=== PATIENT | female | born 1960 | race Hispanic/Latino ===

== ENCOUNTER → 2017-04-08 | Outpatient (CLI) | payer MEDICARE | END | disposition home or self-care (01) | LOC: SLP 20:30 | PROVIDERS: ATTEND Internal Medicine Cardiovascular Disease | DX: G47.33 Obstructive sleep apnea (adult) (pediatric) (principal) | CPT/HCPCS: 95810 ==

== ENCOUNTER → 2017-05-26 | Outpatient (CLI) | payer MEDICARE | END | disposition home or self-care (01) | LOC: SLP 20:33 | PROVIDERS: ATTEND Internal Medicine Cardiovascular Disease | DX: G47.33 Obstructive sleep apnea (adult) (pediatric) (principal) | CPT/HCPCS: 95811 ==

== ENCOUNTER → 2018-03-30 | Outpatient (CLI) | payer OTHER | END | disposition home or self-care (01) | LOC: OIH 12:57 | PROVIDERS: ATTEND Internal Medicine Cardiovascular Disease | DX: Z13.6 Encounter for screening for cardiovascular disorders (principal); I31.3 Pericardial effusion (noninflammatory); I51.7 Cardiomegaly | CPT/HCPCS: 75571 ==

== ENCOUNTER 2019-09-17 05:34 | Day surgery (SDC) | payer MEDICARE ==
[2019-09-17] VITALS (11 sets, daily range): BP systolic 99–126; BP diastolic 45–63
[~2019-09-17] VITALS: Ht 162.6 cm; Wt 125.0 kg
[~2019-09-17 05:34] MED LIST: ASPI-556 PO; CARV6.25 PO; FURO20TA4 PO; PRAV20TA4 PO; SACU1TAB PO; SODIUM CHLORIDE 0.9% 1000ML 1,000 ML IV SCH; SPIR25TA6 PO; [UNRECOGNIZED DRUG - CODE] PO
[2019-09-17 06:32] LABS: CREATININE 1.1 mg/dL (0.5-1.5); POTASSIUM 3.9 mmol/L (3.5-5.1)
[2019-09-17 06:37] LABS: INR 0.92 (0.85-1.15); PARTIAL THROMBOPLASTIN TIME 27.1 SEC (26.3-35.5)
[2019-09-17 06:40] LABS: BASOPHILS % (AUTO) 0.4 % (0.0-5.0); EOSINOPHILS % (AUTO) 2.8 % (0.0-8.0); LYMPHOCYTES % (AUTO) 28.9 % (21.0-51.0); MEAN CORPUSCULAR HEMOGLOBIN 31.7 pg (27.0-33.0); MEAN CORPUSCULAR HGB CONC 32.4 g/dL (32.0-36.0); MEAN CORPUSCULAR VOLUME 97.6 fL (79-99); MONOCYTES % (AUTO) 6.1 % (3.0-13.0); NEUTROPHILS % (AUTO) 61.4 % (40.0-77.0); PLATELET COUNT (AUTO) 177 K/uL (130-400); RED BLOOD CELL COUNT(AUTO) 3.79 MIL/uL (4.00-5.50); RED CELL DISTRIBUTION WIDTH 13.1 % (11.0-15.5); WHITE BLOOD COUNT (AUTO) 9.3 K/uL (4.8-10.8)
--- NOTE | 2019-09-17 07:06 | NUR ---
PROCEDURE PT HERE FOR PROCEDURE. DENIES ANY PAIN, SOB AT THIS TIME.
[2019-09-17] MEDS ORDERED: CEFAZOLIN SODIUM 1 GM VIAL ONE (08:52)
[2019-09-17] MEDS ORDERED: MIDAZOLAM HCL 1 MG/ML 2ML VIAL ONE ×3 (08:52→09:45)
[2019-09-17] MEDS ORDERED: MEPERIDINE-PF 25 MG/ML SYG ONE ×3 (08:52→09:45)
[2019-09-17] MEDS ORDERED: BUPIVACAINE/PF 0.25% 30ML VIAL IJ ONE (08:52)
[2019-09-17] MEDS ORDERED: LIDOCAINE HCL 1% MDV 50ML VIAL ONE (08:52)
--- NOTE | 2019-09-17 09:00 | NUR ---
PROCEDURE PT TAKEN TO PROCEDURE VIA BED BY POTLINE MONITOR STAFF GILLIAN WALLACE
[2019-09-17] MEDS ORDERED: OCTYL 2-CYANOACRYLATE 1 EACH TP ONE (10:15)
[2019-09-17] MEDS ORDERED: ACETAMINOPHEN-CODEINE 300/30MG TAB PO PRN ×2 (11:00)
[2019-09-17] MEDS ORDERED: ONDANSETRON HCL 4 MG/2 ML VIAL IV PRN (11:00)
--- NOTE | 2019-09-17 14:22 | NUR ---
DISCHARGE ORAL AND WRITTEN DISCHARGE INSTRUCTIONS GIVEN TO PTS FATHER AND PT ALONG WITH PRESCRIPTION. NO OTHER QUESTIONS AT THIS TIME. DENIES ANY PAIN.
--- NOTE | 2019-09-17 14:33 | NUR ---
REPORT REPORT GIVEN TO GILLIAN MCKEON
[2019-09-17] MEDS ORDERED: CEFAZOLIN SODIUM 1 GM VIAL IVP SCH (16:00)
--- NOTE | 2019-09-17 16:05 | NUR ---
dc pt dc home via wc,no distress noted. pt denied any pain or discomforts. dressing to left upper chest dry and intact, no bleeding or hematoma to site. pt accompanied by her father
== END 2019-09-17 16:05 | disposition home or self-care (01) ==
LOC: CLH 05:34
PROVIDERS: ATTEND Internal Medicine Cardiovascular Disease
DX: Z45.02 Encounter for adjustment and management of automatic implantable cardiac defibrillator (principal); I42.0 Dilated cardiomyopathy; Z79.82 Long term (current) use of aspirin; Z79.899 Other long term (current) drug therapy; Z79.01 Long term (current) use of anticoagulants
CPT/HCPCS: 33264; 36415; 80048; 85025; 85610; 85730; 93005; A4215; A4216; A4221; A4222; A4223 ×3; A4606; A4663; C1882; J0690 ×2; J2175 ×3; J2250 ×3; J3490 ×2; J7030; 99156; 99157

== ENCOUNTER 2019-11-29 12:54 | Inpatient (IN) | payer MEDICARE ==
[~2019-11-29] VITALS: Ht 165.1 cm; Wt 128.7 kg
[2019-11-29] VITALS (12 sets, daily range): BP systolic 74–114; BP diastolic 31–75
[~2019-11-29 12:54] MED LIST changes: -SODIUM CHLORIDE 0.9% 1000ML 1,000 ML IV SCH
[2019-11-29] MEDS ORDERED: DILTIAZEM HCL 125 MG/25 ML VIAL IV ONE (13:09)
[2019-11-29] MEDS ORDERED: DILTIAZEM HCL 5 MG/ML 10 ML VIAL IV ONE (13:09)
[2019-11-29 13:13] LABS: BASOPHILS % (AUTO) 0.4 % (0.0-5.0); EOSINOPHILS % (AUTO) 1.2 % (0.0-8.0); HEMATOCRIT 39.7 % (36-48); LYMPHOCYTES % (AUTO) 16.3 % (21.0-51.0); MEAN CORPUSCULAR HEMOGLOBIN 31.6 pg (27.0-33.0); MEAN CORPUSCULAR VOLUME 95.9 fL (79-99); MONOCYTES % (AUTO) 5.9 % (3.0-13.0); NEUTROPHILS % (AUTO) 75.7 % (40.0-77.0); PLATELET COUNT (AUTO) 222 K/uL (130-400); RED BLOOD CELL COUNT(AUTO) 4.14 MIL/uL (4.00-5.50); RED CELL DISTRIBUTION WIDTH 13.2 % (11.0-15.5); WHITE BLOOD COUNT (AUTO) 13.8 K/uL (4.8-10.8)
[2019-11-29 13:24] LABS: CREATININE 1.1 mg/dL (0.5-1.5); POTASSIUM 4.3 mmol/L (3.5-5.1)
[2019-11-29 13:27] LABS: INR 0.89 (0.85-1.15); PARTIAL THROMBOPLASTIN TIME 26.8 SEC (26.3-35.5); PROTHROMBIN TIME 9.7 SEC (9.6-11.6)
[2019-11-29 13:29] LABS: ALBUMIN 3.8 g/dL (3.5-5.0); BILIRUBIN,TOTAL 0.8 mg/dL (0.2-1.0); TOTAL PROTEIN, SERUM 7.3 g/dL (6.0-8.3)
[2019-11-29] MEDS ORDERED: ASPIRIN 325 MG TABLET ONE (13:45)
[2019-11-29] MEDS ORDERED: FUROSEMIDE 10 MG/ML 2ML VIAL ONE (13:55)
[2019-11-29] MEDS ORDERED: KETOROLAC TROMETHAMINE 15MG/ML ONE ×2 (14:29→14:36)
[2019-11-29] MEDS ORDERED: ONDANSETRON HCL 4 MG/2 ML VIAL IV PRN (14:30)
[2019-11-29] MEDS ORDERED: ACETAMINOPHEN 325 MG TAB PO PRN ×2 (14:30)
[2019-11-29] MEDS ORDERED: LACTULOSE 20 GM/30 ML UDCUP PO PRN (14:30)
[2019-11-29] MEDS ORDERED: MORPHINE SULFATE 2 MG/ML 1ML SYG IV PRN (14:30)
[2019-11-29] MEDS ORDERED: ONDANSETRON HCL 4 MG/2 ML VIAL ONE (14:44)
[2019-11-29] MEDS: FUROSEMIDE 10 MG/ML 2ML VIAL IV SCH (14:45)
[2019-11-29] MEDS ORDERED: DILTIAZEM 125MG+100 ML NS 125 ML IV SCH (14:45)
[2019-11-29 15:08] LABS: CHOLESTEROL 180 mg/dL (<200); HDL CHOLESTEROL 83 mg/dL (35-85); LDL DIRECT 131 mg/dL (0-99); TRIGLYCERIDES 167 mg/dL (30-200)
[2019-11-29 15:09] LABS: HEMOGLOBIN A1C 6.2 % (4.0-6.0)
[2019-11-29] MEDS ORDERED: FUROSEMIDE 10 MG/ML 4ML VIAL IV SCH (17:15)
[2019-11-29] MEDS ORDERED: FUROSEMIDE 10 MG/ML 4ML VIAL ONE (18:04)
[2019-11-29] MEDS ORDERED: METOPROLOL TARTRATE 1 MG/ML 5ML VIAL IV PRN (18:15)
[2019-11-29] MEDS ORDERED: METOPROLOL TARTRATE 1 MG/ML 5ML VIAL IV SCH (20:30)
[2019-11-29] MEDS: FAMOTIDINE 20MG TAB 20 MG TAB PO SCH (21:45)
[2019-11-29 23:31] LABS: APPEARANCE,URINE Clear (CLEAR); BILIRUBIN,URINE Negative (NEGATIVE); COLOR,URINE Yellow (YELLOW); GLUCOSE, URINE (UA) Negative (NEGATIVE); KETONES,URINE Negative (NEGATIVE); LEUKOCYTE ESTERASE ,URINE Moderate (NEGATIVE); NITRATE,URINE Negative (NEGATIVE); OCCULT BLOOD,URINE Negative (NEGATIVE); PROTEIN,URINE Negative (NEGATIVE); UROBILINOGEN,URINE 0.2 mg/dL (0.2-1.0)
[2019-11-29 23:53] LABS: BACTERIA,URINE Moderate /HPF (None Seen); RBC,URINE 0-1 /HPF (0-1)
[2019-11-29 23:54] LABS: HYALINE CASTS, URINE 0-1 /LPF (0-1 /LPF); SQUAMOUS EPITHELIAL CELL,UR 0-2 /HPF (0-2)
[2019-11-30] VITALS (28 sets, daily range): BP systolic 87–142; BP diastolic 46–75
[2019-11-30] MEDS: FUROSEMIDE 10 MG/ML 2ML VIAL IV SCH ×2 (03:51→14:09)
[2019-11-30 04:07] LABS: BASOPHILS % (AUTO) 0.4 % (0.0-5.0); HEMATOCRIT 35.9 % (36-48); LYMPHOCYTES % (AUTO) 16.7 % (21.0-51.0); MEAN CORPUSCULAR HEMOGLOBIN 31.4 pg (27.0-33.0); MEAN CORPUSCULAR HGB CONC 32.3 g/dL (32.0-36.0); NEUTROPHILS % (AUTO) 77.6 % (40.0-77.0); PLATELET COUNT (AUTO) 172 K/uL (130-400); RED CELL DISTRIBUTION WIDTH 13.2 % (11.0-15.5); WHITE BLOOD COUNT (AUTO) 14.7 K/uL (4.8-10.8)
[2019-11-30 04:11] LABS: CREATININE 1.2 mg/dL (0.5-1.5)
[2019-11-30] MEDS: APIXABAN 5 MG TABLET PO SCH ×2 (09:45→22:08)
[2019-11-30] MEDS: FAMOTIDINE 20MG TAB 20 MG TAB PO SCH ×2 (09:45→22:09)
[2019-11-30] MEDS: ASPIRIN 81MG TAB.CHEW PO SCH (09:45)
[2019-11-30] MEDS: METOPROLOL TARTRATE 25 MG TAB PO SCH ×2 (09:46→22:09)
--- NOTE | 2019-11-30 11:30 | NUR ---
BEDSIDE REPORT GIVEN TO GILLIAN IVEY
--- NOTE | 2019-11-30 16:03 | NUR ---
PT TRANSFER TO PT TRANSFERRED TO [facility] VIA WHEELCHAIR ESCORTED BY NURSE BE WHO RECEIVED BEDSIDE REPORT. PT REMAINED ON 2L VIA NC WITH OXYGEN SATURATIONS AT 98-100%. HR 90S-110 WITHOUT EXERTION. USE OF BSC. VOIDED X8 WITH 1 BM SINCE I REPORTED TO DUTY LOCATION. CRITICAL DRIPS WERE DISCONTINUED AT 10AM. PT APPEARS TO BE TOLERATION PO MEDS WELL. NO COMPLAINTS VOICED
--- NOTE | 2019-11-30 16:10 | NUR ---
TRANSFER FROM ICU RECEIVED PT VIA WHEELCHAIR, PT IS AMBULATORY TO SHOWER AND BACK TO BED, GAIT STEADY AND STRONG WITH STAND BY ASSIST, PT DENIES PAIN, DIZZINESS OR LIGHTHEADEDNESS BUT DOES C/O PALPITATIONS, PT PLACED ON TELE PACK, TELE MONITOR DISPLAYS AFIB WITH A RATE OF 120-140 BEATS PER MINUTE, CARDIZEM IV INITIATED AT 5MG PER HOUR. PT RESTING COMFORTABLY. CALL LIGHT WITHIN REACH.
--- NOTE | 2019-11-30 16:40 | NUR ---
TI PLAN PATIENT BEING MOVED TO FOURTH FLOOR. CM WILL TRY TO DO IA ONCE ON FLOOR. Addendum: 11/30/19 at 1644 by MARTHA SCHOFIELD RN CM Amended: Links added.
[2019-11-30] MEDS ORDERED: PHARMACY COMMUNICATION MISC SCH (19:30)
[2019-12-01 03:47] VITALS: BP 120/61
[2019-12-01] MEDS: FUROSEMIDE 10 MG/ML 2ML VIAL IV SCH ×2 (05:23→17:00)
--- NOTE | 2019-12-01 05:28 | NUR ---
SHIFT UPDATE PATIENT REMAINED ON 2L VIA NC SPO2 AT 98-100%. CONT. ON CARDIAC DRIP HR 100S-120 WITHOUT EXERTION USE OF BSC. VOIDED X6 WITH 1 BM DURING SHIFT. PT PO MEDS WELL. NO C/O PAIN OR DISCOMFORT, CALL DEVICE WITHIN REACH WILL CONT. TO MONITOR.
[2019-12-01 08:45] VITALS: BP 104/65
[2019-12-01] MEDS: METOPROLOL TARTRATE 25 MG TAB PO SCH ×2 (09:06→21:49)
[2019-12-01] MEDS: ASPIRIN 81MG TAB.CHEW PO SCH (09:07)
[2019-12-01] MEDS: APIXABAN 5 MG TABLET PO SCH ×2 (09:07→21:49)
[2019-12-01] MEDS: FAMOTIDINE 20MG TAB 20 MG TAB PO SCH ×2 (09:07→21:49)
[2019-12-01 11:47] VITALS: BP 120/63
[2019-12-01] MEDS ORDERED: FLUT16H NASAL (12:48)
--- NOTE | 2019-12-01 13:06 | NUR ---
ABIDA NOTE/IA UNABLE TO MEET WITH PATIENT, NEXT OF KIN CALLED, CATHERINE VALDESREZ. PER FATHER, PATIENT LIVES WITH MOTHER AND SISTER, IS INDEPENDENT WITH ADLS, NO USE OF DME OR PROVIDER SERVICES, FEELS SAFE FOR PATIENT TO RETURN HOME ONCE DISCHARGED. Addendum: 12/02/19 at 1122 by ROSANNA LANDIN RN CM Amended: Links added.
[2019-12-01 15:28] VITALS: BP 110/65
[2019-12-01] MEDS: FLUTICASONE PROPIONATE 50MCG/SPRAY 16 GM BOTTLE EN SCH (15:28)
[2019-12-01] MEDS ORDERED: HYDROXYZINE HCL 25 MG TABLET PO SCH (19:30)
[2019-12-01 19:46] VITALS: BP 96/68
[2019-12-01 23:48] VITALS: BP 126/90
[2019-12-02 04:16] VITALS: BP 117/53
[2019-12-02] MEDS ORDERED: ACETAMINOPHEN ELIXIR 650 MG/20.3 ML UDCUP ONE (04:54)
[2019-12-02] MEDS: FUROSEMIDE 10 MG/ML 2ML VIAL IV SCH ×2 (05:21→17:22)
[2019-12-02 08:00] VITALS: BP 121/65
[2019-12-02] MEDS: FAMOTIDINE 20MG TAB 20 MG TAB PO SCH ×2 (08:43→22:35)
[2019-12-02] MEDS: METOPROLOL TARTRATE 25 MG TAB PO SCH ×2 (08:43→22:35)
[2019-12-02] MEDS: ASPIRIN 81MG TAB.CHEW PO SCH (08:44)
[2019-12-02] MEDS: FLUTICASONE PROPIONATE 50MCG/SPRAY 16 GM BOTTLE EN SCH (08:44)
[2019-12-02] MEDS ORDERED: APIXABAN 2.5 MG TABLET PO ONE (10:03)
[2019-12-02] MEDS: APIXABAN 5 MG TABLET PO SCH ×2 (10:13→22:35)
[2019-12-02] MEDS: CEFTRIAXONE SODIUM 1 GM IVP SCH (10:13)
[2019-12-02] MEDS ORDERED: MIDAZOLAM HCL 1 MG/ML 2ML VIAL IVP SCH (11:15)
[2019-12-02] MEDS ORDERED: FENTANYL CITRATE PF 50 MCG/1 ML 2ML VIAL IVP SCH (11:15)
[2019-12-02] MEDS ORDERED: LIDOCAINE HCL 2% VISCOUS 15 ML UDCUP PO SCH (11:15)
--- NOTE | 2019-12-02 11:15 | NUR ---
SOREN/CARDIOVERSION PT IN BED, NO SIGNS OF DISTRESS, O2 SAT 95%, SOREN/CARDIOVERSION DONE PER DR Cristian BYRNES, PT TOLERATED WELL. PT RECEIVED VERSED 3 MG IV AND FENTANYL 100 MG IV, O2 PER NC. PT PACED WITH UNDERLYING RHYTHM SINUS. DENIES DISCOMFORT, TELEMETRY MONITORING
[2019-12-02 12:00] VITALS: BP 105/70
--- NOTE | 2019-12-02 14:00 | NUR ---
PM ASSESSMENT PT IN BED, AWAKENS WITH VERBAL STIMULATION. DENIES CHEST PAIN OR DISCOMFORT, TELEMETRY MONITORING.
[2019-12-02 16:00] VITALS: BP 124/70
--- NOTE | 2019-12-02 17:00 | NUR ---
ASSESSMENT PT AWAKE AND ALERT, DENIES CHEST PAIN OR DISCOMFORT, NO SOB OR LABORED RESPIRATIONS. STATES FEELING BETTER. DENIES LESS DISCOMFORT WHEN VOIDING. TELEMETRY MONITORING
[2019-12-02 20:14] VITALS: BP 142/73
[2019-12-03 00:24] VITALS: BP 121/63
[2019-12-03 04:19] VITALS: BP 122/62
[2019-12-03] MEDS: FUROSEMIDE 10 MG/ML 2ML VIAL IV SCH (05:31)
[2019-12-03] MEDS: CEFTRIAXONE SODIUM 1 GM IVP SCH (09:49)
[2019-12-03] MEDS: FAMOTIDINE 20MG TAB 20 MG TAB PO SCH (09:49)
[2019-12-03] MEDS: METOPROLOL TARTRATE 25 MG TAB PO SCH (09:50)
[2019-12-03] MEDS: ASPIRIN 81MG TAB.CHEW PO SCH (09:50)
[2019-12-03] MEDS: APIXABAN 5 MG TABLET PO SCH (09:50)
[2019-12-03] MEDS: FLUTICASONE PROPIONATE 50MCG/SPRAY 16 GM BOTTLE EN SCH (09:51)
[2019-12-03] MEDS ORDERED: APIX5TAB PO (09:55)
[2019-12-03] MEDS ORDERED: METO25 PO (09:55)
[2019-12-03 10:08] VITALS: BP 125/65
[2019-12-03 11:54] VITALS: BP 126/60
--- NOTE | 2019-12-03 13:00 | NUR ---
[id number] patient signed IM Letter, I faxed IM letter to [id number] and placed in chart under consent tab.
[2019-12-03] MEDS ORDERED: CEPH-578 PO (15:04)
[2019-12-03 17:00] VITALS: BP 139/68
== END 2019-12-03 19:00 | disposition home or self-care (01) | DRG 308 ==
LOC: EDH 12:54 → OBSVTOIN 14:03 → EDHIP 14:03 → DAHIP 19:35 → 4DH 11-30 16:18
PROVIDERS: ADMIT Hospitalist; ATTEND Hospitalist
PROC: 5A2204Z Restoration of Cardiac Rhythm, Single (ICD-10-PCS; principal; 2019-12-02)
PROC: B24BZZ4 Ultrasonography of Heart with Aorta, Transesophageal (ICD-10-PCS; 2019-12-02)
DX: I48.91 Unspecified atrial fibrillation (principal); I50.23 Acute on chronic systolic (congestive) heart failure; N39.0 Urinary tract infection, site not specified; I11.0 Hypertensive heart disease with heart failure; E66.9 Obesity, unspecified; I42.8 Other cardiomyopathies; Z95.810 Presence of automatic (implantable) cardiac defibrillator; I08.1 Rheumatic disorders of both mitral and tricuspid valves; Z83.3 Family history of diabetes mellitus; Z82.49 Family history of ischemic heart disease and other diseases of the circulatory system
CPT/HCPCS: 36415; 71045; 80048; 80053; 80061; 81001; 82550; 83036; 83735; 83880; 84484; 85025; 85610; 85730; 87088; 92960; 93005; 93306; 93313; 93356; 99291; G0378; J0696; J1885; J1940; J2250; J2405; J3010; J3490

== ENCOUNTER 2020-03-02 18:54 | Emergency (ER) | payer MEDICARE, OTHER ==
[~2020-03-02 18:54] MED LIST changes: +APIX5TAB PO; -CARV6.25 PO; +CEPH-578 PO; +FLUT16H NASAL; +METO25 PO
[2020-03-02 19:32] LABS: BASOPHILS % (AUTO) 0.4 % (0.0-5.0); EOSINOPHILS % (AUTO) 2.1 % (0.0-8.0); HEMATOCRIT 39.3 % (36-48); LYMPHOCYTES % (AUTO) 19.5 % (21.0-51.0); MEAN CORPUSCULAR HEMOGLOBIN 31.4 pg (27.0-33.0); MEAN CORPUSCULAR HGB CONC 32.3 g/dL (32.0-36.0); MONOCYTES % (AUTO) 5.6 % (3.0-13.0); PLATELET COUNT (AUTO) 192 K/uL (130-400); RED BLOOD CELL COUNT(AUTO) 4.05 MIL/uL (4.00-5.50); RED CELL DISTRIBUTION WIDTH 12.8 % (11.0-15.5); WHITE BLOOD COUNT (AUTO) 13.7 K/uL (4.8-10.8)
[2020-03-02 19:32] LABS: APPEARANCE,URINE Clear (CLEAR); BILIRUBIN,URINE Negative (NEGATIVE); COLOR,URINE Yellow (YELLOW); GLUCOSE, URINE (UA) Negative (NEGATIVE); KETONES,URINE Negative (NEGATIVE); LEUKOCYTE ESTERASE ,URINE Trace (NEGATIVE); NITRATE,URINE Negative (NEGATIVE); OCCULT BLOOD,URINE Negative (NEGATIVE); PROTEIN,URINE Negative (NEGATIVE); UROBILINOGEN,URINE 0.2 mg/dL (0.2-1.0)
[2020-03-02 19:40] LABS: CREATININE 1.1 mg/dL (0.5-1.5); POTASSIUM 3.9 mmol/L (3.5-5.1)
[2020-03-02 19:44] LABS: ALBUMIN 4.2 g/dL (3.5-5.0); BILIRUBIN,TOTAL 0.5 mg/dL (0.2-1.0); TOTAL PROTEIN, SERUM 7.9 g/dL (6.0-8.3)
[2020-03-02 19:51] LABS: BACTERIA,URINE Few /HPF (None Seen); RBC,URINE None Seen /HPF (0-1); WBC,URINE 0-1 /HPF (0-1)
[2020-03-02 19:52] LABS: SQUAMOUS EPITHELIAL CELL,UR 0-2 /HPF (0-2)
[2020-03-02] MEDS ORDERED: CYCLOBENZAPRINE HCL 10 MG TABLET ONE (21:32)
[2020-03-02] MEDS ORDERED: METHYLPREDNISOLONE SOD SUCC 125MG/2ML VIAL ONE (21:32)
== END 2020-03-02 21:46 | disposition home or self-care (01) ==
LOC: EDH 18:54
DX: S33.5XXA Sprain of ligaments of lumbar spine, initial encounter (principal); M79.18 Myalgia, other site; I10 Essential (primary) hypertension; Z90.49 Acquired absence of other specified parts of digestive tract; Z98.890 Other specified postprocedural states; X58.XXXA Exposure to other specified factors, initial encounter; Y93.89 Activity, other specified; Y92.89 Other specified places as the place of occurrence of the external cause; Y99.8 Other external cause status
CPT/HCPCS: 36415; 72100; 80053; 81001; 83690; 84484; 85025; 93005; 96374; 99285; J2930

== ENCOUNTER → 2020-11-13 | Outpatient (CLI) | payer OTHER ==
[~2020-11-13] MED LIST changes: +[UNRECOGNIZED DRUG - CODE] PO; -[UNRECOGNIZED DRUG - CODE] PO
== END | disposition home or self-care (01) ==
LOC: DTH 14:04
PROVIDERS: ATTEND Surgery
DX: E66.01 Morbid (severe) obesity due to excess calories (principal); M19.91 Primary osteoarthritis, unspecified site; E78.00 Pure hypercholesterolemia, unspecified
CPT/HCPCS: 97802

== ENCOUNTER → 2021-01-09 | Outpatient (CLI) | payer OTHER ==
[~2021-01-09] VITALS: Ht 10.2 cm; Wt 126.8 kg
== END | disposition home or self-care (01) ==
LOC: DTH 10:54
PROVIDERS: ATTEND Surgery
DX: I10 Essential (primary) hypertension (principal); E78.00 Pure hypercholesterolemia, unspecified; E66.01 Morbid (severe) obesity due to excess calories
CPT/HCPCS: 97802; 97803

== ENCOUNTER 2021-03-30 13:58 | Emergency (ER) | payer MEDICARE, OTHER ==
[~2021-03-30] VITALS: Ht 162.6 cm; Wt 120.7 kg
[2021-03-30] MEDS ORDERED: PSEU120T62 PO (15:20)
[2021-03-30] MEDS ORDERED: GUAI-996 PO (15:20)
[2021-03-30] MEDS ORDERED: ACET-3194 PO (15:20)
[2021-03-30] MEDS ORDERED: AZIT250T9 PO (15:20)
[2021-03-30 15:54] VITALS: BP 128/72
== END 2021-03-30 15:50 | disposition home or self-care (01) ==
LOC: EDH 13:58
DX: U07.1 COVID-19 (principal); E78.00 Pure hypercholesterolemia, unspecified; Z98.890 Other specified postprocedural states; Z79.82 Long term (current) use of aspirin; Z79.899 Other long term (current) drug therapy
CPT/HCPCS: 87635; 87804 ×2; 99283; C9803

== ENCOUNTER 2021-06-25 18:15 | Inpatient (IN) | payer MEDICARE, OTHER ==
[~2021-06-25] VITALS: Ht 162.6 cm; Wt 118.0 kg
[~2021-06-25 18:15] MED LIST changes: +ACET-3194 PO; +AZIT250T9 PO; +GUAI-996 PO; +PSEU120T62 PO
[2021-06-25] MEDS ORDERED: FAMOTIDINE 20MG VIAL IV ONE (19:30)
[2021-06-25] MEDS ORDERED: PANTOPRAZOLE 40 MG/VIAL IVP ONE (19:30)
[2021-06-25 19:36] LABS: BASOPHILS % (AUTO) 0.5 % (0.0-5.0); HEMATOCRIT 41.5 % (36-48); LYMPHOCYTES % (AUTO) 25.3 % (21.0-51.0); MEAN CORPUSCULAR HEMOGLOBIN 30.7 pg (27.0-33.0); MEAN CORPUSCULAR HGB CONC 31.6 g/dL (32.0-36.0); MEAN CORPUSCULAR VOLUME 97.2 fL (79-99); MONOCYTES % (AUTO) 7.2 % (3.0-13.0); NEUTROPHILS % (AUTO) 65.5 % (40.0-77.0); PLATELET COUNT (AUTO) 190 K/uL (130-400); RED BLOOD CELL COUNT(AUTO) 4.27 MIL/uL (4.00-5.50); RED CELL DISTRIBUTION WIDTH 14.1 % (11.0-15.5); WHITE BLOOD COUNT (AUTO) 11.8 K/uL (4.8-10.8)
[2021-06-25 19:46] LABS: CREATININE 1.1 mg/dL (0.5-1.5); POTASSIUM 4.4 mmol/L (3.5-5.1)
[2021-06-25 19:50] LABS: ALBUMIN 3.8 g/dL (3.5-5.0); BILIRUBIN,TOTAL 0.5 mg/dL (0.2-1.0); TOTAL PROTEIN, SERUM 6.9 g/dL (6.0-8.3)
[2021-06-25] MEDS ORDERED: DILTIAZEM 50MG VIAL IV ONE (19:50)
[2021-06-25 19:53] LABS: B-TYPE NATRIURETIC PEPTIDE 1110 pg/mL (0-100)
[2021-06-25] MEDS ORDERED: DILTIAZEM 25MG INJ IVP ONE (20:00)
[2021-06-25] MEDS ORDERED: 0.9% NACL 500ML IV.SOLN 500 ML IV ONE (20:00)
[2021-06-25] MEDS ORDERED: ONDANSETRON 4MG INJ IVP ONE (20:30)
[2021-06-25] MEDS ORDERED: METOCLOPRAMIDE 10 MG/2 ML VIAL IVP ONE (20:30)
[2021-06-25] MEDS ORDERED: FUROSEMIDE 20MG VIAL IV ONE (21:00)
[2021-06-25] MEDS ORDERED: DILTIAZEM 125 MG/25 ML INJ 125 MG in 0.9%NACL 100ML 100 ML IV PRN (21:00)
[2021-06-25] MEDS ORDERED: DILTIAZEM 125 MG/25 ML INJ 125 MG in 0.9%NACL 100ML 100 ML IV SCH (21:00)
[2021-06-25] MEDS ORDERED: METOCLOPRAMIDE 10 MG/2 ML VIAL ONE (21:47)
[2021-06-25] MEDS ORDERED: ONDANSETRON 4MG INJ ONE (21:47)
[2021-06-25] MEDS ORDERED: ASPIRIN 81MG CHEW TAB PO ONE (22:00)
[2021-06-25] MEDS ORDERED: ONDANSETRON 4MG INJ IV PRN (22:00)
[2021-06-26] MEDS ORDERED: ASPIRIN 81MG CHEW TAB ONE (00:03)
[2021-06-26 05:41] LABS: BASOPHILS % (AUTO) 0.5 % (0.0-5.0); HEMATOCRIT 38.1 % (36-48); LYMPHOCYTES % (AUTO) 29.7 % (21.0-51.0); MEAN CORPUSCULAR HEMOGLOBIN 31.4 pg (27.0-33.0); MEAN CORPUSCULAR HGB CONC 31.5 g/dL (32.0-36.0); MEAN CORPUSCULAR VOLUME 99.7 fL (79-99); MONOCYTES % (AUTO) 6.8 % (3.0-13.0); NEUTROPHILS % (AUTO) 61.7 % (40.0-77.0); PLATELET COUNT (AUTO) 153 K/uL (130-400); RED BLOOD CELL COUNT(AUTO) 3.82 MIL/uL (4.00-5.50); RED CELL DISTRIBUTION WIDTH 14.2 % (11.0-15.5); WHITE BLOOD COUNT (AUTO) 9.3 K/uL (4.8-10.8)
[2021-06-26 06:00] LABS: MAGNESIUM 2.2 mg/dL (1.80-2.40); PHOSPHORUS 4.4 mg/dL (2.5-4.9); POTASSIUM 4.2 mmol/L (3.5-5.1)
[2021-06-26] MEDS ORDERED: ENOXAPARIN SODIUM 40 MG/0.4 ML SYRINGE SQ SCH (09:00)
[2021-06-26] MEDS ORDERED: ASPIRIN 81MG CHEW TAB PO SCH (09:00)
[2021-06-26] MEDS: FUROSEMIDE 40MG VIAL IVP SCH ×2 (09:25→20:46)
[2021-06-26] MEDS: FAMOTIDINE 20MG TAB PO SCH (09:25)
[2021-06-26] MEDS ORDERED: METO200T49 PO (09:34)
[2021-06-26] MEDS ORDERED: EMPA10TA PO (09:34)
[2021-06-26] MEDS ORDERED: AEC81 PO (09:34)
[2021-06-26] MEDS ORDERED: SPIR25TA6 PO (09:34)
[2021-06-26] MEDS ORDERED: SACU1TAB4 PO (09:34)
[2021-06-26] MEDS ORDERED: AMIODARONE 150MG VIAL 150 MG in DEXTROSE 5%-WATER 100 ML IV SCH (15:30)
[2021-06-26] MEDS ORDERED: FENTANYL CITRATE PF 50 MCG/1 ML 2ML VIAL IVP ONE (15:30)
[2021-06-26] MEDS ORDERED: MIDAZOLAM HCL 1 MG/ML 2ML VIAL IVP ONE (15:30)
[2021-06-26 15:53] LABS: INR 0.99 (0.85-1.15); PROTHROMBIN TIME 10.8 SEC (9.6-11.6)
[2021-06-26] MEDS ORDERED: HEPARIN 5,000 UNIT VIAL ONE (15:53)
[2021-06-26] MEDS ORDERED: AMIODARONE 900MG VIAL 360 MG in DEXTROSE 5%-WATER 200 ML IV SCH (16:00)
[2021-06-26] MEDS: HEPARIN 25,000 UNITS/250ML D5W 250 ML IV SCH (16:11)
[2021-06-26] MEDS ORDERED: HEPARIN 5,000 UNIT VIAL IV ONE (17:00)
[2021-06-26 17:45] VITALS: BP 106/63
[2021-06-26 20:00] VITALS: BP 142/72
[2021-06-26] MEDS: SIMVASTATIN 20 MG TABLET PO SCH (20:46)
[2021-06-26] MEDS ORDERED: SACUBITRIL/VALSARTAN 1 EACH TABLET PO SCH (21:00)
[2021-06-26 21:47] LABS: INR 1.05 (0.85-1.15); PROTHROMBIN TIME 11.4 SEC (9.6-11.6)
[2021-06-26] MEDS ORDERED: MIDAZOLAM HCL 1 MG/ML 2ML VIAL IVP PRN (22:00)
[2021-06-26] MEDS ORDERED: AMIODARONE 900MG VIAL 540 MG in DEXTROSE 5%-WATER 300 ML IV SCH (22:00)
[2021-06-26] MEDS ORDERED: FENTANYL CITRATE PF 50 MCG/1 ML 2ML VIAL IVP PRN (22:00)
[2021-06-26 22:22] LABS: PARTIAL THROMBOPLASTIN TIME 105.1 SEC (26.3-35.5)
[2021-06-26 23:43] VITALS: BP 113/66
[2021-06-27] MEDS ORDERED: DILTIAZEM 125 MG/25 ML INJ 125 MG in 0.9%NACL 100ML 100 ML IV SCH (02:30)
[2021-06-27] MEDS: ACETAMINOPHEN 325 MG TAB PO PRN ×2 (02:58→21:42)
[2021-06-27 04:20] VITALS: BP 102/68
[2021-06-27] MEDS: HEPARIN 25,000 UNITS/250ML D5W 250 ML IV SCH (05:28)
[2021-06-27 07:50] LABS: HEMATOCRIT 37.9 % (36-48); MEAN CORPUSCULAR HEMOGLOBIN 30.8 pg (27.0-33.0); MEAN CORPUSCULAR HGB CONC 32.2 g/dL (32.0-36.0); MEAN CORPUSCULAR VOLUME 95.7 fL (79-99); RED BLOOD CELL COUNT(AUTO) 3.96 MIL/uL (4.00-5.50); WHITE BLOOD COUNT (AUTO) 12.6 K/uL (4.8-10.8)
[2021-06-27 08:00] VITALS: BP 113/66
[2021-06-27] MEDS ORDERED: SPIRONOLACTONE 25 MG TAB ONE (08:00)
[2021-06-27 08:20] LABS: ALBUMIN 3.6 g/dL (3.5-5.0); CREATININE 1.2 mg/dL (0.5-1.5); MAGNESIUM 1.9 mg/dL (1.80-2.40); POTASSIUM 3.1 mmol/L (3.5-5.1); TOTAL PROTEIN, SERUM 6.8 g/dL (6.0-8.3)
[2021-06-27] MEDS: FUROSEMIDE 40MG VIAL IVP SCH ×2 (08:33→20:42)
[2021-06-27] MEDS: ASPIRIN 81 MG EC TAB PO SCH (08:36)
[2021-06-27] MEDS: AMIODARONE 200 MG TABLET PO SCH ×2 (08:36→20:41)
[2021-06-27] MEDS: METOPROLOL TARTRATE 25 MG TAB PO SCH ×2 (08:36→20:41)
[2021-06-27] MEDS: APIXABAN 5 MG TABLET PO SCH ×2 (08:36→20:41)
[2021-06-27] MEDS: FUROSEMIDE 40 MG TABLET PO SCH (08:37)
[2021-06-27] MEDS: SPIRONOLACTONE 25 MG TAB PO SCH ×2 (08:37→20:42)
[2021-06-27] MEDS: FAMOTIDINE 20MG TAB PO SCH (08:37)
[2021-06-27] MEDS: EMPAGLIFLOZIN 10 MG PO SCH (08:38)
[2021-06-27] MEDS ORDERED: KCL 20 MEQ ERTAB PO ONE (08:40)
[2021-06-27] MEDS: PANTOPRAZOLE 40 MG TAB DR PO SCH (08:59)
[2021-06-27] MEDS ORDERED: POTASSIUM CHLORIDE 10% ELIXIR 20 MEQ/15 ML UDCUP PO PRN ×2 (09:00)
[2021-06-27] MEDS ORDERED: SPIRONOLACTONE 25 MG TAB PO SCH (09:00)
[2021-06-27] MEDS ORDERED: LIDOCAINE HCL-MPF 1% 2ML VIAL IV PRN (09:00)
[2021-06-27] MEDS ORDERED: KCL 20 MEQ ERTAB PO PRN (09:00)
[2021-06-27] MEDS ORDERED: POTASSIUM CHLORIDE 20MEQ/100ML 100 ML IV PRN ×2 (09:00)
[2021-06-27] MEDS ORDERED: ACETAMINOPHEN WITH CODEINE 1 TAB TAB PO PRN (09:00)
[2021-06-27] MEDS: MAGNESIUM OXIDE 400 MG TABLET PO SCH (09:02)
[2021-06-27] MEDS: ACETAMINOPHEN WITH CODEINE 1 TAB TAB PO PRN ×2 (10:00→15:58)
[2021-06-27] MEDS: KCL 20 MEQ ERTAB PO PRN ×4 (10:01→15:57)
[2021-06-27 11:59] VITALS: BP 109/73
[2021-06-27] MEDS: PANTOPRAZOLE 40 MG/VIAL IVP SCH (14:22)
[2021-06-27 14:39] LABS: CREATININE 1.2 mg/dL (0.5-1.5); MAGNESIUM 1.9 mg/dL (1.80-2.40); POTASSIUM 3.5 mmol/L (3.5-5.1)
[2021-06-27] MEDS ORDERED: MAGNESIUM 2GM PREMIX 50ML 50 ML IV ONE (15:40)
[2021-06-27 15:50] VITALS: BP 114/73
[2021-06-27 18:08] LABS: APPEARANCE,URINE Clear (CLEAR); BILIRUBIN,URINE Negative (NEGATIVE); COLOR,URINE Yellow (YELLOW); GLUCOSE, URINE (UA) >=1000 mg/dL (NEGATIVE); KETONES,URINE Negative (NEGATIVE); LEUKOCYTE ESTERASE ,URINE Negative (NEGATIVE); NITRATE,URINE Negative (NEGATIVE); OCCULT BLOOD,URINE Negative (NEGATIVE); PROTEIN,URINE Negative (NEGATIVE); UROBILINOGEN,URINE 0.2 mg/dL (0.2-1.0)
[2021-06-27 18:15] LABS: RBC,URINE 0-1 /HPF (0-1)
[2021-06-27 18:16] LABS: BACTERIA,URINE Few /HPF (None Seen); SQUAMOUS EPITHELIAL CELL,UR Few /HPF (0-2)
[2021-06-27 19:00] VITALS: BP 130/61
[2021-06-27 19:03] VITALS: BP 104/60
[2021-06-27] MEDS: SIMVASTATIN 20 MG TABLET PO SCH (20:41)
[2021-06-28] VITALS (7 sets, daily range): BP systolic 84–128; BP diastolic 39–72
[2021-06-28 03:57] LABS: HEMATOCRIT 35.8 % (36-48); MEAN CORPUSCULAR HEMOGLOBIN 31.3 pg (27.0-33.0); MEAN CORPUSCULAR HGB CONC 32.1 g/dL (32.0-36.0); MEAN CORPUSCULAR VOLUME 97.5 fL (79-99); RED BLOOD CELL COUNT(AUTO) 3.67 MIL/uL (4.00-5.50); RED CELL DISTRIBUTION WIDTH 13.9 % (11.0-15.5); WHITE BLOOD COUNT (AUTO) 11.1 K/uL (4.8-10.8)
[2021-06-28 04:24] LABS: ALBUMIN 3.5 g/dL (3.5-5.0); BILIRUBIN,TOTAL 2.1 mg/dL (0.2-1.0); CREATININE 1.2 mg/dL (0.5-1.5); MAGNESIUM 2.5 mg/dL (1.80-2.40); POTASSIUM 3.9 mmol/L (3.5-5.1); TOTAL PROTEIN, SERUM 6.8 g/dL (6.0-8.3)
[2021-06-28] MEDS ORDERED: MILRINONE-D5W 20 MG/100 ML 100 ML IV SCH (07:30)
[2021-06-28] MEDS: SPIRONOLACTONE 25 MG TAB PO SCH (08:16)
[2021-06-28] MEDS: METOLAZONE 2.5 MG TABLET PO SCH (08:17)
[2021-06-28] MEDS: MAGNESIUM OXIDE 400 MG TABLET PO SCH (08:17)
[2021-06-28] MEDS: APIXABAN 5 MG TABLET PO SCH ×2 (08:17→21:37)
[2021-06-28] MEDS: AMIODARONE 200 MG TABLET PO SCH ×2 (08:18→21:37)
[2021-06-28] MEDS: ACETAMINOPHEN WITH CODEINE 1 TAB TAB PO PRN (08:18)
[2021-06-28] MEDS: PANTOPRAZOLE 40 MG TAB DR PO SCH (08:18)
[2021-06-28] MEDS: ASPIRIN 81 MG EC TAB PO SCH (08:18)
[2021-06-28] MEDS: LISINOPRIL 5 MG TABLET PO SCH (08:19)
[2021-06-28] MEDS: FUROSEMIDE 40 MG TABLET PO SCH (08:19)
[2021-06-28] MEDS: KCL 20 MEQ ERTAB PO SCH (08:19)
[2021-06-28] MEDS: METOPROLOL TARTRATE 25 MG TAB PO SCH (08:19)
[2021-06-28] MEDS: EMPAGLIFLOZIN 10 MG PO SCH (08:20)
[2021-06-28] MEDS: MILRINONE-D5W 20 MG/100 ML 100 ML IV SCH ×2 (09:20→12:37)
[2021-06-28] MEDS: PANTOPRAZOLE 40 MG/VIAL IVP SCH (11:05)
[2021-06-28 16:41] LABS: MAGNESIUM 2.4 mg/dL (1.80-2.40); POTASSIUM 3.5 mmol/L (3.5-5.1)
[2021-06-28] MEDS: KCL 20 MEQ ERTAB PO PRN (17:46)
[2021-06-28] MEDS: SIMVASTATIN 20 MG TABLET PO SCH (21:37)
[2021-06-29] VITALS (10 sets, daily range): BP systolic 100–127; BP diastolic 53–65
[2021-06-29] MEDS: SPIRONOLACTONE 25 MG TAB PO SCH ×3 (00:50→20:31)
[2021-06-29] MEDS: METOPROLOL TARTRATE 25 MG TAB PO SCH ×3 (00:51→20:31)
[2021-06-29] MEDS: ACETAMINOPHEN 325 MG TAB PO PRN (00:59)
[2021-06-29] MEDS: METOLAZONE 2.5 MG TABLET PO SCH ×2 (02:09→07:48)
[2021-06-29] MEDS: KCL 20 MEQ ERTAB PO SCH (02:09)
[2021-06-29 03:36] LABS: MEAN CORPUSCULAR HEMOGLOBIN 30.3 pg (27.0-33.0); MEAN CORPUSCULAR HGB CONC 32.4 g/dL (32.0-36.0); MEAN CORPUSCULAR VOLUME 93.5 fL (79-99); RED BLOOD CELL COUNT(AUTO) 3.53 MIL/uL (4.00-5.50); RED CELL DISTRIBUTION WIDTH 13.9 % (11.0-15.5); WHITE BLOOD COUNT (AUTO) 8.6 K/uL (4.8-10.8)
[2021-06-29 03:53] LABS: ALBUMIN 3.2 g/dL (3.5-5.0); BILIRUBIN,TOTAL 1.5 mg/dL (0.2-1.0); CREATININE 1.3 mg/dL (0.5-1.5); POTASSIUM 3.7 mmol/L (3.5-5.1); TOTAL PROTEIN, SERUM 6.5 g/dL (6.0-8.3)
[2021-06-29] MEDS: KCL 20 MEQ ERTAB PO PRN (05:13)
[2021-06-29] MEDS: ASPIRIN 81 MG EC TAB PO SCH (09:53)
[2021-06-29] MEDS: PANTOPRAZOLE 40 MG TAB DR PO SCH (09:54)
[2021-06-29] MEDS: FUROSEMIDE 40 MG TABLET PO SCH (09:54)
[2021-06-29] MEDS: AMIODARONE 200 MG TABLET PO SCH ×2 (09:54→20:31)
[2021-06-29] MEDS: LISINOPRIL 5 MG TABLET PO SCH (09:54)
[2021-06-29] MEDS: APIXABAN 5 MG TABLET PO SCH ×2 (09:56→20:31)
[2021-06-29] MEDS: EMPAGLIFLOZIN 10 MG PO SCH (09:56)
[2021-06-29] MEDS: MAGNESIUM OXIDE 400 MG TABLET PO SCH (10:07)
[2021-06-29] MEDS: MILRINONE-D5W 20 MG/100 ML 100 ML IV SCH (10:08)
[2021-06-29] MEDS: SIMVASTATIN 20 MG TABLET PO SCH (20:30)
[2021-06-30 03:30] VITALS: BP 116/62
[2021-06-30] MEDS: ACETAMINOPHEN WITH CODEINE 1 TAB TAB PO PRN (04:01)
[2021-06-30] MEDS: KCL 20 MEQ ERTAB PO SCH (06:52)
[2021-06-30 08:31] VITALS: BP 106/59
[2021-06-30] MEDS: ASPIRIN 81 MG EC TAB PO SCH (08:36)
[2021-06-30] MEDS: SPIRONOLACTONE 25 MG TAB PO SCH (08:37)
[2021-06-30] MEDS: APIXABAN 5 MG TABLET PO SCH (08:37)
[2021-06-30] MEDS: EMPAGLIFLOZIN 10 MG PO SCH (08:38)
[2021-06-30] MEDS: AMIODARONE 200 MG TABLET PO SCH (08:38)
[2021-06-30] MEDS: FUROSEMIDE 40 MG TABLET PO SCH (08:38)
[2021-06-30] MEDS: LISINOPRIL 5 MG TABLET PO SCH (08:38)
[2021-06-30] MEDS: METOPROLOL TARTRATE 25 MG TAB PO SCH (08:38)
[2021-06-30] MEDS: PANTOPRAZOLE 40 MG TAB DR PO SCH (08:39)
[2021-06-30] MEDS: MAGNESIUM OXIDE 400 MG TABLET PO SCH (08:48)
[2021-06-30] MEDS ORDERED: METO25 PO (09:56)
[2021-06-30] MEDS ORDERED: FURO40TA7 PO (09:56)
[2021-06-30] MEDS ORDERED: LISI5TAB21 PO (09:56)
[2021-06-30] MEDS ORDERED: APIX5TAB PO (09:56)
[2021-06-30] MEDS ORDERED: AMIO200T44 PO (09:56)
[2021-06-30] MEDS ORDERED: SPIR25TA6 PO (09:56)
[2021-07-04] MEDS ORDERED: AMIODARONE 200 MG TABLET PO SCH (21:00)
== END 2021-06-30 11:55 | disposition home or self-care (01) | DRG 280 ==
LOC: EDH 18:15 → EDHIP 21:34 → 2DH 06-26 17:51
PROVIDERS: ADMIT Internal Medicine; ATTEND Internal Medicine
PROC: 5A2204Z Restoration of Cardiac Rhythm, Single (ICD-10-PCS; principal; 2021-06-26)
DX: I48.0 Paroxysmal atrial fibrillation (principal); I50.43 Acute on chronic combined systolic (congestive) and diastolic (congestive) heart failure; I21.A1 Myocardial infarction type 2; Z68.41 Body mass index [BMI] 40.0-44.9, adult; D68.59 Other primary thrombophilia; E87.1 Hypo-osmolality and hyponatremia; I11.0 Hypertensive heart disease with heart failure; I42.0 Dilated cardiomyopathy; D72.829 Elevated white blood cell count, unspecified; E11.9 Type 2 diabetes mellitus without complications; M06.9 Rheumatoid arthritis, unspecified; I44.7 Left bundle-branch block, unspecified; E78.5 Hyperlipidemia, unspecified; E66.01 Morbid (severe) obesity due to excess calories; G89.29 Other chronic pain; E78.00 Pure hypercholesterolemia, unspecified; Z79.01 Long term (current) use of anticoagulants; Z79.82 Long term (current) use of aspirin; Z79.84 Long term (current) use of oral hypoglycemic drugs; Z79.899 Other long term (current) drug therapy; Z90.49 Acquired absence of other specified parts of digestive tract; Z95.810 Presence of automatic (implantable) cardiac defibrillator; Z83.3 Family history of diabetes mellitus; Z80.9 Family history of malignant neoplasm, unspecified; Z82.49 Family history of ischemic heart disease and other diseases of the circulatory system
CPT/HCPCS: 36415; 71045; 76705; 80048; 80053; 81001; 83690; 83735; 83880; 84100; 84132; 84145; 84484; 85025; 85027; 85610; 85651; 85730; 86140; 87088; 93005; C9113; G0378; J0282; J1644; J1650; J1940; J2250; J2260; J2405; J2765; J3010; J3475; J3490; J7040; J7060

== ENCOUNTER → 2022-03-16 | Outpatient (CLI) | payer OTHER ==
[~2022-03-16] MED LIST changes: -ACET-3194 PO; +AEC81 PO; +AMIO200T44 PO; -ASPI-556 PO; -AZIT250T9 PO; -CEPH-578 PO; +EMPA10TA PO; -FLUT16H NASAL; -FURO20TA4 PO; +FURO40TA7 PO; -GUAI-996 PO; +LISI5TAB21 PO; -PSEU120T62 PO; -SACU1TAB PO; -[UNRECOGNIZED DRUG - CODE] PO
== END | disposition home or self-care (01) ==
LOC: RAH 14:28
PROVIDERS: ATTEND Internal Medicine
DX: Z12.31 Encounter for screening mammogram for malignant neoplasm of breast (principal)
CPT/HCPCS: 77067

== ENCOUNTER 2022-03-25 18:11 | Emergency (ER) | payer OTHER ==
[~2022-03-25] VITALS: Ht 162.6 cm; Wt 124.7 kg
[2022-03-25 19:29] LABS: BASOPHILS % (AUTO) 0.6 % (0.0-5.0); EOSINOPHILS % (AUTO) 1.8 % (0.0-8.0); HEMATOCRIT 37.2 % (36-48); LYMPHOCYTES % (AUTO) 31.3 % (21.0-51.0); MEAN CORPUSCULAR HEMOGLOBIN 31.8 pg (27.0-33.0); MEAN CORPUSCULAR HGB CONC 32.5 g/dL (32.0-36.0); MEAN CORPUSCULAR VOLUME 97.6 fL (79-99); MONOCYTES % (AUTO) 7.9 % (3.0-13.0); NEUTROPHILS % (AUTO) 58.2 % (40.0-77.0); PLATELET COUNT (AUTO) 192 K/uL (130-400); RED BLOOD CELL COUNT(AUTO) 3.81 MIL/uL (4.00-5.50); WHITE BLOOD COUNT (AUTO) 8.4 K/uL (4.8-10.8)
[2022-03-25 19:40] LABS: CREATININE 1.2 mg/dL (0.5-1.5); POTASSIUM 4.1 mmol/L (3.5-5.1)
[2022-03-25 19:49] LABS: ALBUMIN 3.8 g/dL (3.5-5.0); MAGNESIUM 2.1 mg/dL (1.80-2.40); TOTAL PROTEIN, SERUM 7.1 g/dL (6.0-8.3)
[2022-03-25] MEDS ORDERED: IPRATROPIUM/ALBUTEROL SULFATE 3 ML SOLUTION IH ONE (20:00)
[2022-03-25 20:22] VITALS: BP 159/76
[2022-03-25] MEDS ORDERED: FUROSEMIDE 40MG VIAL IV ONE (20:30)
== END 2022-03-25 21:20 | disposition home or self-care (01) ==
LOC: EDH 18:11
DX: I11.0 Hypertensive heart disease with heart failure (principal); I50.9 Heart failure, unspecified; I48.91 Unspecified atrial fibrillation; Z90.49 Acquired absence of other specified parts of digestive tract; Z79.899 Other long term (current) drug therapy; Z79.82 Long term (current) use of aspirin
CPT/HCPCS: 36415; 71045; 80053; 83735; 83880; 84484; 85025; 93005; 94640; 96374

== ENCOUNTER 2023-02-07 01:03 | Emergency (ER) | payer OTHER ==
[~2023-02-07] VITALS: Ht 162.6 cm; Wt 126.1 kg
[2023-02-07 02:31] LABS: BASOPHILS # (AUTO) 0.03 K/uL (0.00-0.20); BASOPHILS % (AUTO) 0.4 % (0.0-5.0); EOSINOPHILS # (AUTO) 0.21 K/uL (0.00-0.70); HEMATOCRIT 40.2 % (36-48); IMMATURE GRANULOCYTE ABSOLUTE 0.03 K/uL (0-1); LYMPHOCYTES # (AUTO) 2.3 K/uL (1.0-4.8); LYMPHOCYTES % (AUTO) 32.4 % (21.0-51.0); MEAN CORPUSCULAR HGB CONC 32.8 g/dL (32.0-36.0); MEAN CORPUSCULAR VOLUME 97.3 fL (79-99); MONOCYTES # (AUTO) 0.5 K/uL (0.1-1.0); MONOCYTES % (AUTO) 6.7 % (3.0-13.0); NEUTROPHILS % (AUTO) 57.1 % (40.0-77.0); PLATELET COUNT (AUTO) 155 K/uL (130-400); RED BLOOD CELL COUNT(AUTO) 4.13 MIL/uL (4.00-5.50); RED CELL DISTRIBUTION WIDTH 13.6 % (11.0-15.5)
[2023-02-07 02:32] VITALS: BP 118/67; PULSE 81; RESP 18; O2SAT 97
[2023-02-07 02:40] LABS: POTASSIUM 3.7 mmol/L (3.5-5.1)
[2023-02-07 02:54] LABS: MAGNESIUM 2.1 mg/dL (1.80-2.40); THYROID STIMULATING HORMONE 3.17 uIU/mL (0.36-3.74)
== END 2023-02-07 03:19 | disposition home or self-care (01) ==
LOC: EDH 01:03
DX: I11.0 Hypertensive heart disease with heart failure (principal); I50.9 Heart failure, unspecified; Z79.01 Long term (current) use of anticoagulants; Z79.82 Long term (current) use of aspirin; Z79.84 Long term (current) use of oral hypoglycemic drugs; Z79.899 Other long term (current) drug therapy; Z90.49 Acquired absence of other specified parts of digestive tract
CPT/HCPCS: 36415; 80048; 83735; 84443; 84484; 85025; 93005

== ENCOUNTER → 2023-11-25 | Outpatient (CLI) | payer OTHER ==
[2023-11-25 12:08] LABS: CREATININE 0.9 mg/dL (0.5-1.0); POTASSIUM 4.3 mmol/L (3.5-5.1)
== END | disposition home or self-care (01) ==
LOC: LAB 10:08
PROVIDERS: ATTEND Physician Assistant
DX: I10 Essential (primary) hypertension (principal)
CPT/HCPCS: 36415; 80048

== ENCOUNTER → 2024-04-05 | Outpatient (CLI) | payer OTHER ==
[2024-04-05 12:10] LABS: BASOPHILS # (AUTO) 0.05 K/uL (0.00-0.20); BASOPHILS % (AUTO) 0.6 % (0.0-5.0); EOSINOPHILS # (AUTO) 0.19 K/uL (0.00-0.70); EOSINOPHILS % (AUTO) 2.2 % (0.0-8.0); HEMATOCRIT 42.8 % (36-48); IMMATURE GRANULOCYTE ABSOLUTE 0.04 K/uL (0-1); LYMPHOCYTES # (AUTO) 2.6 K/uL (1.0-4.8); MEAN CORPUSCULAR HEMOGLOBIN 32.3 pg (27.0-33.0); MEAN CORPUSCULAR VOLUME 100.9 fL (79-99); MONOCYTES # (AUTO) 0.5 K/uL (0.1-1.0); MONOCYTES % (AUTO) 6.1 % (3.0-13.0); NEUTROPHILS # (AUTO) 5.3 K/uL (1.8-7.7); NEUTROPHILS % (AUTO) 60.6 % (40.0-77.0); PLATELET COUNT (AUTO) 167 K/uL (130-400); RED BLOOD CELL COUNT(AUTO) 4.24 MIL/uL (4.00-5.50); RED CELL DISTRIBUTION WIDTH 13.1 % (11.0-15.5); WHITE BLOOD COUNT (AUTO) 8.7 K/uL (4.8-10.8)
[2024-04-05 12:14] LABS: HEMOGLOBIN A1C 5.6 % (4.0-6.0)
[2024-04-05 12:30] LABS: ALBUMIN 3.7 g/dL (3.5-5.0); BILIRUBIN,TOTAL 0.4 mg/dL (0.2-1.0); CREATININE 1.1 mg/dL (0.5-1.0); MAGNESIUM 2.1 mg/dL (1.80-2.40); POTASSIUM 4.5 mmol/L (3.5-5.1); TOTAL PROTEIN, SERUM 6.8 g/dL (6.0-8.3)
== END | disposition home or self-care (01) ==
LOC: LAB 08:23
PROVIDERS: ATTEND Internal Medicine Cardiovascular Disease
DX: I10 Essential (primary) hypertension (principal); I42.0 Dilated cardiomyopathy; E11.9 Type 2 diabetes mellitus without complications; Z79.899 Other long term (current) drug therapy
CPT/HCPCS: 36415; 80053; 80061; 83036; 83735; 83880; 85025

== ENCOUNTER 2024-07-25 20:44 | Emergency (ER) | payer OTHER ==
[~2024-07-25] VITALS: Ht 162.6 cm; Wt 122.5 kg
--- NOTE | 2024-07-25 20:49 | NUR ---
COVID, FLU AND STREP SWABS COLLECTED
--- NOTE | 2024-07-25 21:10 | ERN ---
General Chief Complaint: Fever Stated Complaint: FEVER,HEADACHES Time Seen by MD: 20:47 Source: patient History of Present Illness Initial Comments Patient is a 63-year-old female with a past medical history of diabetes, heart disease and hypertension. She comes in with concerns of a fever measuring up to 102 for the last two days. Once she did feel a little cold like chills. Only other associated symptom is a mild headache. She took some Tylenol today for the headache and it did not help her fever. She has no other associated symptoms: Cough no rhinorrhea no sinus pain no ear pain no shortness of breath no chest pain no abdominal pain no burning with urination no change in defecation. Patient does state that she is being treated for a yeast infection with both an antifungal medication and an antifungal cream. Timing/Duration: 24 hours Severity: moderate Associated Symptoms: denies symptoms Allergies: Coded Allergies: No Known Drug Allergies (Verified Allergy, Unknown, 11/29/19) Home Meds Active Scripts Lisinopril (Lisinopril) 5 Mg Tablet, 5 MG PO DAILY for 30 Days, #30 TAB Prov:ELIOT STEIN Jr., MD 06/30/21 Furosemide (Lasix 40Mg Tab) 40 Mg Tablet, 40 MG PO DAILY for 30 Days, #30 TAB 1 Refill Prov:ELIOT STEIN Jr., MD 06/30/21 Amiodarone HCl (Pacerone) 200 Mg Tablet, 200 MG PO AD for 30 Days, #35 TAB 0 Refills Take 200 mg orally twice daily until 07/03/2021 (LAST DAY OF TWICE DAILY DOSING.) Take 200 mg orally daily beginning 07/04/2021. Prov:ELIOT STEIN Jr., MD 06/30/21 Spironolactone (Spironolactone) 25 Mg Tablet, 25 MG PO DAILY for 30 Days, #30 TAB 1 Refill Prov:ELIOT STEIN Jr., MD 06/30/21 Apixaban (Eliquis) 5 Mg Tablet, 5 MG PO BID for 30 Days, #60 TAB 1 Refill Prov:ELIOT STEIN Jr., MD 06/30/21 Metoprolol Tartrate (Lopressor) 25 Mg Tab, 25 MG PO BID for 30 Days, #60 TAB 1 Refill Prov:ELIOT STEIN Jr., MD 4/2/22 Reported Medications Aspirin (ASPIRIN 81 MG ECTAB) 81 Mg Ectab, 81 MG PO DAILY, TAB.EC 06/26/21 Empagliflozin (Jardiance) 10 Mg Tablet, 10 MG PO DAILY, TAB 06/26/21 Pravastatin Sodium (Pravastatin Sodium) 20 Mg Tablet, 20 MG PO HS, TAB 09/16/19 Past Medical History Past Medical History: Diabetes-Type II, Heart Disease, Hypertension Medical History Other: HEART FAILURE Past Surgical History: Cholecystectomy Surgical History Other: CARDIAC ABLATION Social History Social History: Negative, Lives with family Constitutional: (+) chills, (+) fever EENTM: (-) eye pain, (-) blurred vision, (-) tearing, (-) double vision, (-) ear pain, (-) ear discharge, (-) nose pain, (-) nose congestion, (-) throat pain, (-) Throat swelling, (-) mouth pain, (-) tooth pain, (-) mouth swelling, (-) other documentation Cardiovascular: (-) chest pain, (-) edema, (-) palpitations, (-) syncope, (-) dyspnea on exertion, (-) other documentation Gastrointestinal/Abdominal: (-) nausea, (-) vomiting, (-) diarrhea, (-) abdominal pain, (-) abdominal distention, (-) constipation, (-) rectal bleeding, (-) dark stool/melena, (-) other documentation Genitourinary: (+) vaginal discharge Musculoskeletal: (-) Neck pain, (-) back pain, (-) Flank Pain, (-) joint pain, (-) joint swelling, (-) muscle pain, (-) muscle stiffness, (-) gout, (-) other documentation Skin: (-) laceration, (-) contusion, (-) abrasion, (-) abscess, (-) rash, (-) change in color, (-) change in hair, (-) change in nails, (-) diaphoresis, (-) dryness, (-) other documentation Neuro: (+) headache Physical Exam General Appearance: (+) no apparent distress Orientation: (+) oriented x 3 Head/Face Trauma: No Eye: bilateral eye normal inspection, bilateral eye PERRL, bilateral eye EOMI Ear, Nose, Throat: (+) hearing grossly normal, (+) moist mucous membraine, (+) normal pharynx Ear, Nose, Throat Comment Patient had no sinus tenderness to her frontal sinuses or her maxillary sinuses. Neck: (+) normal inspection, (+) supple, (+) full range of motion, (+) no JVD Respiratory: (+) chest non-tender, (+) lungs clear, (+) well ventilated Heart: (+) regular Vascular: (+) no edema, (+) no JVD Gastrointestinal: (+) soft, (+) non-tender, (+) bowel sound present Results Laboratory and Microbiology Lab and Micro Result Laboratory Tests Test 07/25/24 20:50 07/25/24 21:29 Influenza Type A Antigen Negative For Type A Influenza Type B Antigen Negative For Type B SARS-CoV-2 Antigen (Rapid) PRESUMPTIVE NEGATIVE Group A Streptococcus Rapid negative (NEGATIVE) White Blood Count 7.6 K/uL (4.8-10.8) Red Blood Count 3.82 MIL/uL (4.00-5.50) L Hemoglobin 12.3 g/dL (12.0-16.0) Hematocrit 38.2 % (36-48) Mean Corpuscular Volume 100.0 fL (79-99) H Mean Corpuscular Hemoglobin 32.2 pg (27.0-33.0) Mean Corpuscular Hemoglobin Concent 32.2 g/dL (32.0-36.0) Red Cell Distribution Width 13.0 % (11.0-15.5) Platelet Count 142 K/uL (130-400) Mean Platelet Volume 11.5 fL (7.5-10.5) H Immature Granulocyte % (Auto) 0.4 % (0-1) Neutrophils (%) (Auto) 55.5 % (40.0-77.0) Lymphocytes (%) (Auto) 33.1 % (21.0-51.0) Monocytes (%) (Auto) 8.2 % (3.0-13.0) Eosinophils (%) (Auto) 2.5 % (0.0-8.0) Basophils (%) (Auto) 0.3 % (0.0-5.0) Neutrophils # (Auto) 4.2 K/uL (1.8-7.7) Lymphocytes # (Auto) 2.5 K/uL (1.0-4.8) Monocytes # (Auto) 0.6 K/uL (0.1-1.0) Eosinophils # (Auto) 0.19 K/uL (0.00-0.70) Basophils # (Auto) 0.02 K/uL (0.00-0.20) Absolute Immature Granulocyte (auto 0.03 K/uL (0-1) Nucleated Red Blood Cells 0.0 % (0.0-0.19) Sodium Level 136 mmol/L (136-145) Potassium Level 4.1 mmol/L (3.5-5.1) Chloride Level 100 mmol/L (101-111) L Carbon Dioxide Level 31 mmol/L (21-32) Blood Urea Nitrogen 26 mg/dL (7-18) H Creatinine 1.4 mg/dL (0.5-1.0) H Glomerular Filtration Rate Calc 43 mL/min (>90) Random Glucose 127 mg/dL (70-105) H Total Calcium 8.9 mg/dL (8.5-10.1) Procalcitonin 0.06 ng/mL (0.05-0.5) MDM Patient's fever could be due to her new medications, early infection in the lungs or urine or sinuses, the yeast infection, neurogenic, blood clot such as a DVT. I will start with a UA chemistry panel CBC procalcitonin chest x-ray. Patient's chest x-ray does have some increased markings and lymph nodes however they were present on an x-ray taken three years ago. Patient's nasal swabs are negative for flu strep and COVID. Patient's CBC is normal more significantly her procalcitonin is normal. I did not get a UA because patient has no symptoms down there. Patient does not have any leg swelling or leg pain so I am doubtful of a DVT as a cause. The patient's temperature here is 99.9 on two separate readings. I told the patient if she continues to have fevers or symptoms of an infection in her urine or her sinuses or her lungs or throat that she should come back. She agrees with this and is glad there are no hard signs of an infection. ED Course Orders Procedure Category Date Status Time Basic Metabolic Panel LAB 07/25/24 Complete 21:11 Cbc With Differential LAB 07/25/24 Complete 21:11 Procalcitonin LAB 07/25/24 Complete 21:11 Rapid (Group A Strep) LAB 07/25/24 Complete 21:11 Covid19 (Sars Antigen LAB 07/25/24 Complete Rapid) 21:11 Influenza Type A & B, LAB 07/25/24 Complete Rapid 21:11 Chest 1vw RAD 07/25/24 Taken 21:11 Vital Signs Date Time Temp Pulse Resp B/P (MAP) Pulse Ox O2 Delivery O2 Flow Rate FiO2 07/25/24 20:55 99.9 70 20 121/69 98 Room Air* 0 21 07/25/24 20:44 99.9 70 20 121/69 98 Room Air DX & DISP Disposition: Discharge Departure Impression: Primary Impression: Fever Condition: Stable Additional Instructions: Please follow-up with primary care physician if fevers continue. Referrals: SMITH NAVAS MD (PCP) CAMRYN CARMONA MD Jul 25, 2024 21:10
[2024-07-25 21:28] LABS: RAPID GROUP A STREP negative (NEGATIVE)
[2024-07-25 21:36] LABS: BASOPHILS # (AUTO) 0.02 K/uL (0.00-0.20); BASOPHILS % (AUTO) 0.3 % (0.0-5.0); EOSINOPHILS # (AUTO) 0.19 K/uL (0.00-0.70); EOSINOPHILS % (AUTO) 2.5 % (0.0-8.0); HEMATOCRIT 38.2 % (36-48); IMMATURE GRANULOCYTE ABSOLUTE 0.03 K/uL (0-1); LYMPHOCYTES # (AUTO) 2.5 K/uL (1.0-4.8); LYMPHOCYTES % (AUTO) 33.1 % (21.0-51.0); MEAN CORPUSCULAR HEMOGLOBIN 32.2 pg (27.0-33.0); MEAN CORPUSCULAR HGB CONC 32.2 g/dL (32.0-36.0); MONOCYTES # (AUTO) 0.6 K/uL (0.1-1.0); MONOCYTES % (AUTO) 8.2 % (3.0-13.0); NEUTROPHILS # (AUTO) 4.2 K/uL (1.8-7.7); NEUTROPHILS % (AUTO) 55.5 % (40.0-77.0); PLATELET COUNT (AUTO) 142 K/uL (130-400); RED BLOOD CELL COUNT(AUTO) 3.82 MIL/uL (4.00-5.50); WHITE BLOOD COUNT (AUTO) 7.6 K/uL (4.8-10.8)
[2024-07-25 21:38] LABS: COVID19 (SARS ANTIGEN RAPID) PRESUMPTIVE NEGATIVE (NEGATIVE); INFLUENZA TYPE A Negative For Type A (NEGATIVE); INFLUENZA TYPE B Negative For Type B (NEGATIVE)
[2024-07-25 21:50] LABS: CREATININE 1.4 mg/dL (0.5-1.0); POTASSIUM 4.1 mmol/L (3.5-5.1)
[2024-07-25 23:10] VITALS: BP 124/70; PULSE 70; RESP 16; TEMP 99.7; O2SAT 97
--- NOTE | 2024-07-26 11:39 | HMCIMG ---
CHEST 1VW HISTORY: Fever COMPARISON: 03/25/2022 FINDINGS: A frontal projection of the chest was obtained. There are bilateral pulmonary infiltrates suggestive of pulmonary vascular congestion with possible superimposed pneumonitis. The heart is enlarged. Degenerative changes are seen. Pacemaker is seen entering from the left. IMPRESSION: 1. Bilateral pulmonary infiltrates are seen suggestive of pulmonary vascular congestion with possible superimposed pneumonitis.
== END 2024-07-25 23:10 | disposition home or self-care (01) ==
LOC: EDH 20:44
DX: R50.9 Fever, unspecified (principal); R51.9 Headache, unspecified; E11.9 Type 2 diabetes mellitus without complications; I11.9 Hypertensive heart disease without heart failure; Z20.822 Contact with and (suspected) exposure to COVID-19; Z79.01 Long term (current) use of anticoagulants; Z79.82 Long term (current) use of aspirin; Z79.84 Long term (current) use of oral hypoglycemic drugs; Z79.899 Other long term (current) drug therapy; Z90.49 Acquired absence of other specified parts of digestive tract
CPT/HCPCS: 36415; 71045; 80048; 84145; 85025; 87426; 87804; 87880; 99284

== ENCOUNTER → 2024-11-16 | Outpatient (CLI) | payer OTHER ==
[~2024-11-16] MED LIST changes: -PRAV20TA4 PO; +PRAV20TA59 PO
[2024-11-16 09:49] LABS: IMMATURE GRANULOCYTE ABSOLUTE 0.03 K/uL (0-1); NUCLEATED RED BLOOD CELLS 0.0 % (0.0-0.19); PLATELET COUNT (AUTO) 153 K/uL (130-400); RED BLOOD CELL COUNT(AUTO) 4.06 MIL/uL (4.00-5.50); RED CELL DISTRIBUTION WIDTH 13.4 % (11.0-15.5); WHITE BLOOD COUNT (AUTO) 7.1 K/uL (4.8-10.8)
--- NOTE | 2024-11-16 09:51 | EKG ---
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
[2024-11-16 10:59] LABS: % IRON SATURATION 27.3 % (22-44); IRON, SERUM 77.0 mcg/dL (50-170)
[2024-11-16 11:16] LABS: ASPARTATE AMINOTRANSFERASE 11 U/L (10-37); CREATININE 1.2 mg/dL (0.5-1.0); GLOMERULAR FILTR. RATE CALC 51 mL/min (>90); GLUCOSE,RANDOM 121 mg/dL (70-105); LDL DIRECT 89 mg/dL (0-99); SODIUM SERUM 145 mmol/L (136-145); TOTAL PROTEIN, SERUM 7.3 g/dL (6.0-8.3); UREA NITROGEN, BLOOD 23 mg/dL (7-18)
--- NOTE | 2024-11-16 23:23 | HMCIMG ---
EXAM: CR Chest, single view CLINICAL HISTORY: Bariatric surgery. COMPARISON: None FINDINGS: Moderate cardiomegaly with bilateral pulmonary congestion. A battery pack is in the left anterior chest wall with a pacemaker wire in the right atrium and ventricles. The lungs show no infiltrate or other acute findings. No pleural effusion or pneumothorax. No acute osseous abnormality. IMPRESSION: No acute infiltrates or effusion.Moderate cardiomegaly with bilateral pulmonary congestion. A battery pack is in the left anterior chest wall with a pacemaker wire in the right atrium and ventricles. /[place]
== END | disposition home or self-care (01) ==
LOC: LAB 07:40
PROVIDERS: ATTEND Surgery
DX: I49.8 Other specified cardiac arrhythmias (principal); I11.9 Hypertensive heart disease without heart failure; E11.9 Type 2 diabetes mellitus without complications; E66.01 Morbid (severe) obesity due to excess calories; E66.3 Overweight; G47.33 Obstructive sleep apnea (adult) (pediatric); M19.91 Primary osteoarthritis, unspecified site; E78.00 Pure hypercholesterolemia, unspecified; Z79.899 Other long term (current) drug therapy
CPT/HCPCS: 36415; 71045; 80053; 80061; 82306; 82607; 82728; 82746; 83036; 83540; 83550; 83735; 84207; 84425; 84436; 84443; 84446; 84481; 84590; 84630; 85025; 93005

== ENCOUNTER → 2024-12-07 | Outpatient (CLI) | payer OTHER ==
--- NOTE | 2024-12-07 11:25 | NUR ---
BARIATRIC FOLLOW UP NOTE VISIT 2 OF 6 Wt: 285 LBS DOS: 12/07/24 Upon follow up visit, pt presents with no wt change. Pt was disappointed about wt maintenance, is a fluid restriction by her MD of 48oz per day, tried to consume 140 oz per day, has been trying protein shakes, bought isopure, has been walking QD for 20 mins, has been trying SF products. RD conducted 24 hr food recall. Breakfast: eggs+ sausage + coffee Lunch: hummus + crackers + tea Dinner: ground meat + potato + tea S: no snacks RD reviewed simple CHO and complex CHO intake, encouraged pt to decrease soft drink (even sugar free) consumption secondary to carbonation and caffeine, pt verbalized understanding. RD and pt established goals for next month: -increase color in meals -walking qd 25 mins -increase protein intake per day Thank you for this visit Addendum: 12/07/24 at [address] Amended: Links added.
== END | disposition home or self-care (01) ==
LOC: DTH 07:26
PROVIDERS: ATTEND Surgery
DX: E66.01 Morbid (severe) obesity due to excess calories (principal); E66.3 Overweight; G47.33 Obstructive sleep apnea (adult) (pediatric); E11.9 Type 2 diabetes mellitus without complications; I10 Essential (primary) hypertension; M19.91 Primary osteoarthritis, unspecified site; E78.00 Pure hypercholesterolemia, unspecified; Z71.3 Dietary counseling and surveillance; Z68.42 Body mass index [BMI] 45.0-49.9, adult
CPT/HCPCS: 97803

== ENCOUNTER 2024-12-22 08:33 | Day surgery (SDC) | payer OTHER ==
[2024-12-22] VITALS (11 sets, daily range): BP systolic 94–128; BP diastolic 47–66; PULSE 70–78; RESP 10–16; TEMP 97.1–97.7
[~2024-12-22] VITALS: Ht 165.1 cm; Wt 127.5 kg
[~2024-12-22 08:33] MED LIST changes: -AEC81 PO; -EMPA10TA PO; +LORA5SOL30 PO; +METO200T37 PO; +MULTIVITAMIN PATCH; +MULTIVITAMIN PATCH TP; -PRAV20TA59 PO; +ROSU10TA72 PO; +SACU1TAB4 PO
[2024-12-22] MEDS ORDERED: LIDOCAINE PF 100MG/5ML (2%) SYRINGE 5ML ONE (09:27)
[2024-12-22] MEDS: 0.9%NACL 1000ML 1,000 ML IV ONE (10:01)
[2024-12-22] MEDS ORDERED: MONT-39 PO (10:01)
[2024-12-22] MEDS ORDERED: DAPA10TA PO (10:01)
--- NOTE | 2024-12-22 10:46 | NUR ---
READ AND FOLLOW YOUR DOCTORS' DISCHARGE INSTRUCTIONS. YOU MAY FEEL BLOATED TODAY NOTIFY YOUR DOCTOR ABOUT ANYDO NOT DRIVE, OPERATE HEAVY MACHINERY FOR 24 HOURS. ABDOMINAL PAIN/INTENTION OR SEVERE RECTAL BLEEDING. CALL 911 OR GO TO THE NEAREST EMERGENCY ROOM IF YOU HAVE CHEST PAIN OR DIFFICULTY BREATHING. YOUR THROAT MAY FEEL SORE TODAY IF YOU HAD AN EGD OR COLONOSCOPY.
--- NOTE | 2024-12-22 10:46 | NUR ---
Full and complete discharge instructions given to Patient and Family both verbally and in writing. Explained GI procedure precautions and follow up. All questions answered. PIV removed with catheter tip intact. Family at bedside appearing supportive. W/C to POV with Family to home
== END 2024-12-22 10:45 | disposition home or self-care (01) ==
LOC: ENDO 08:33 → DAH 08:33 → ENDO 10:45
PROVIDERS: ATTEND Surgery
DX: R12 Heartburn (principal); K29.50 Unspecified chronic gastritis without bleeding; K22.89 Other specified disease of esophagus; K44.9 Diaphragmatic hernia without obstruction or gangrene; K31.89 Other diseases of stomach and duodenum; E66.01 Morbid (severe) obesity due to excess calories; I11.0 Hypertensive heart disease with heart failure; I50.9 Heart failure, unspecified; E78.00 Pure hypercholesterolemia, unspecified; E11.9 Type 2 diabetes mellitus without complications; M81.0 Age-related osteoporosis without current pathological fracture; Z90.49 Acquired absence of other specified parts of digestive tract; Z68.42 Body mass index [BMI] 45.0-49.9, adult; Z79.01 Long term (current) use of anticoagulants; Z79.899 Other long term (current) drug therapy
CPT/HCPCS: 43239; J7030; J2003; J2704 ×2; A4620; A4215 ×2; A4223; A4222; A4221; A4663; A4606; J3490

== ENCOUNTER → 2024-12-29 | Outpatient (CLI) | payer OTHER ==
[~2024-12-29] MED LIST changes: +DAPA10TA PO; -FURO40TA7 PO; -LISI5TAB21 PO; -METO25 PO; +MONT-39 PO
--- NOTE | 2024-12-29 09:55 | NUR ---
FOLLOW PRE-OP/POST-OP DIETARY RECOMMENDATIONS BARIATRIC PRE-OP VISIT VISIT 3 OF 3 Wt: 283 lbs DOS:12/29/24 Upon follow up visit, pt presented with a 2 lb wt loss. Pt with MVI patches, on 48 oz fluid restriction, walking QD for 20 mins, pending several clearances, looking into chewable for bariatric. RD reviewed educational material for pre-op and post-op diet recommendations with detailed phases of diet post-op. Pt was informed of importance of lifelong vitamin/mineral supplementation, choosing protein first during meals (pt was educated on higher protein requirements), choosing low calorie, sugar free, carbonated free and caffeine beverages. RD also informed pt on lifelong commitment to exercise and dietary recommendations for optimal success post surgery. RD encouraged getting blood work every 3 to 6 months, including B-vitamins, Pt verbalized understanding. RD informed Pt on moving around after procedure to prevent DVT, Pt verbalized understanding. Pt was encouraged to contact RD as questions arise and to attend support groups. RD provided protein supplement recommendations along with Bariatric Vitamin recommendations via graphics to patient. Pt with several questions, all of which were answered. Fair to poor compliance suspected. Pt will benefit from outpatient bariatric dietitian follow up post procedure. Pt to follow up with PCP for labs. Thank you for this visit. Addendum: 12/29/24 at [address] Amended: Links added.
== END | disposition home or self-care (01) ==
LOC: DTH 07:31
PROVIDERS: ATTEND Surgery
DX: E66.01 Morbid (severe) obesity due to excess calories (principal); G47.33 Obstructive sleep apnea (adult) (pediatric); E66.3 Overweight; I10 Essential (primary) hypertension; M19.91 Primary osteoarthritis, unspecified site; Z71.3 Dietary counseling and surveillance; E78.00 Pure hypercholesterolemia, unspecified; E11.9 Type 2 diabetes mellitus without complications
CPT/HCPCS: 97803

== ENCOUNTER → 2025-01-14 | Outpatient (CLI) | payer OTHER ==
[~2025-01-14] MED LIST changes: +REGADENOSON 0.4 MG/5 ML PF SYG IVP ONE; -ROSU10TA72 PO; +ROSU10TA98 PO
== END | disposition home or self-care (01) ==
LOC: RAH 07:10
PROVIDERS: ATTEND Internal Medicine Cardiovascular Disease
DX: I11.0 Hypertensive heart disease with heart failure (principal); I50.22 Chronic systolic (congestive) heart failure; E66.01 Morbid (severe) obesity due to excess calories; Z95.810 Presence of automatic (implantable) cardiac defibrillator
CPT/HCPCS: 78452; 93017; J2785; A9500 ×2

== ENCOUNTER → 2025-02-11 | Outpatient (CLI) | payer OTHER ==
[~2025-02-11] MED LIST changes: -AMIO200T44 PO; +AMIO200T73 PO; +LORA10TA7 PO; -LORA5SOL30 PO; -MULTIVITAMIN PATCH; -REGADENOSON 0.4 MG/5 ML PF SYG IVP ONE
--- NOTE | 2025-02-12 02:25 | HMCIMG ---
STUDY: X-RAY OF THE CHEST, 2 VIEWS HISTORY: Acute cough. TECHNIQUE: PA and lateral views of the chest are submitted for interpretation. COMPARISON: Chest radiograph from 11/16 at 12:03 EDT. FINDINGS: Pulmonary hopper: Pulmonary vascular congestion is present. The lungs show no focal infiltrate, consolidation, or other acute parenchymal abnormality. No evidence of pneumothorax. Cardiac silhouette: Moderate cardiomegaly, unchanged from the prior study. Mediastinum and jenna: Mediastinal contours are within normal limits. Hilar structures are unremarkable. Osseous structures: No acute osseous abnormality is identified. Miscellaneous: A battery pack overlies the left anterior chest wall with pacemaker leads terminating in the right atrium and right ventricle. No pleural effusion is seen. IMPRESSION: * Moderate cardiomegaly with pulmonary vascular congestion, without radiographic evidence of acute airspace disease, pleural effusion, or pneumothorax. * Left anterior chest wall pacemaker with leads in the right atrium and right ventricle. * Compared with the chest radiograph from 11/16 at 12:03 EDT, findings are stable with no new acute cardiopulmonary abnormality identified. /[place]
== END | disposition home or self-care (01) ==
LOC: RAH 12:40
PROVIDERS: ATTEND Internal Medicine
DX: I51.7 Cardiomegaly (principal); R09.89 Other specified symptoms and signs involving the circulatory and respiratory systems; R05.1 Acute cough; Z95.0 Presence of cardiac pacemaker
CPT/HCPCS: 71046